=== PATIENT | female | born 2000 | race African-American/Black ===

== ENCOUNTER 2019-03-18 17:56 | Emergency (ER) | payer MEDICAID ==
[~2019-03-18] VITALS: Ht 170.2 cm; Wt 75.0 kg
[~2019-03-18 17:56] MED LIST: ALBUTEROL; P20; QVAR
[2019-03-18] MEDS ORDERED: IPRATROPIUM BROMIDE (0.02%) 0.5MG/2.5ML NEB HHN ONE (19:00)
[2019-03-18] MEDS ORDERED: ALBUTEROL (0.5%) 2.5MG/0.5ML NEB HHN ONE (19:00)
[2019-03-18] MEDS ORDERED: PREDNISONE 20MG TABLET PO ONE (19:00)
[2019-03-18] MEDS ORDERED: ONDANSETRON 4MG ODT PO ONE (19:15)
[2019-03-18 20:45] VITALS: BP 148/85
== END 2019-03-18 21:12 | disposition home or self-care (01) ==
LOC: ER 17:56
DX: J45.901 Unspecified asthma with (acute) exacerbation (principal)
CPT/HCPCS: 94640; 99283; J7512; J7611; Q0162; Z7610